=== PATIENT | male | born 1955 | race Two or more races ===

== ENCOUNTER → 2024-03-05 | Day surgery (SDC) | payer OTHER ==
[~2024-03-05] VITALS: Ht 162.6 cm; Wt 88.5 kg
[2024-03-05 09:58] VITALS: PULSE 61; RESP 19; TEMP 97.8; O2SAT 100
[2024-03-05 10:28] VITALS: BP 122/62; PULSE 59; RESP 12; O2SAT 97
== END | disposition home or self-care (01) ==
LOC: GI 08:01
PROVIDERS: ATTEND Internal Medicine Gastroenterology
DX: R10.13 Epigastric pain (principal); K29.50 Unspecified chronic gastritis without bleeding; K21.9 Gastro-esophageal reflux disease without esophagitis; I10 Essential (primary) hypertension; E11.9 Type 2 diabetes mellitus without complications; Z98.890 Other specified postprocedural states; Z79.84 Long term (current) use of oral hypoglycemic drugs; Z79.899 Other long term (current) drug therapy
CPT/HCPCS: 43239; 88305; 88312; 88342; J7030